=== PATIENT | female | born 2000 | race Caucasian/White ===

== ENCOUNTER 2022-08-22 15:37 | Emergency (ER) | payer BC ==
[2022-08-22] MEDS ORDERED: Acetaminophen/oxyCODONE 325-5 MG Tab PO ONE (15:53)
== END 2022-08-22 16:31 | disposition home or self-care (01) ==
LOC: DL.ED 15:37
DX: S52.125A Nondisplaced fracture of head of left radius, initial encounter for closed fracture (principal)
CPT/HCPCS: 29125; 73100; 99282; 99283; A9270